=== PATIENT | male | born 1965 | race African-American/Black ===

== ENCOUNTER 2018-07-10 08:24 | Emergency (ER) | payer OTHER ==
[2018-07-10 08:35] VITALS: BP 163/103; PULSE 100; TEMP 98.6; BMI 33.6
[2018-07-10] MEDS ORDERED: CYCLOBENZAPRINE HCL 10 MG TABLET (FP) PO ONE (09:26)
[2018-07-10] MEDS ORDERED: CYCLOBENZAPRINE HCL 10 MG TABLET (FP) ONE (09:29)
--- NOTE | 2018-07-10 09:38 | PDOC ---
History of Present Illness - General Chief Complaint: Back Pain Stated Complaint: LOWER BACK PAIN Time Seen by Provider: 07/10/18 09:03 History Source: Patient Exam Limitations: Clinical Condition - History of Present Illness Initial Comments: 07/10/18 09:33 Patient with history of chronic back pain present with complaining of sudden onset of right-sided lower back pain which is worse with movement and getting up from sitting or laying position. Patient reported pain sometimes radiate to the back of right thigh. Patient reported no pain if he is sitting down stable and pain only comes on with movement. Patient denies any trauma or injury to back. Patient denies any other symptoms. Timing/Duration: other (3 days) Past History - Past Medical History Allergies/Adverse Reactions: Allergies Allergy/AdvReac Type Severity Reaction Status Date / Time aspirin Allergy Verified 07/10/18 08:30 Home Medications: Ambulatory Orders Acetaminophen [Tylenol .Regular Strength -] 325 mg PO PRN 10/25/17 Albuterol 2.5/Ipratropium 0.5 [Duoneb -] 1 amp NEB PRN PRN #7 amp 10/25/17 Prednisone [Deltasone] 40 mg PO DAILY #8 tablet MDD 2 tab 10/25/17 Methocarbamol [Robaxin -] 500 mg PO Q8H PRN #21 tablet 07/10/18 Methylprednisolone [Medrol Dose Robert] 4 mg PO ASDIR #21 tablet 07/10/18 Oxycodone HCl/Acetaminophen [Percocet 5-325 mg Tablet] 1 tab PO Q6H PRN #5 tablet MDD 3 07/10/18 COPD: No HTN: Yes - Immunization History Immunization Up to Date: Yes - Suicide/Smoking/Psychosocial Hx Smoking History: Never smoked Have you smoked in the past 12 months: No Hx Alcohol Use: No Drug/Substance Use Hx: No Substance Use Type: None Review of Systems - Review of Systems Able to Perform ROS?: Yes Is the patient limited Indonesian proficient: No Constitutional: No: Weakness HEENTM: No: Blurred Vision, Double Vision Respiratory: No: Symptoms reported Cardiac (ROS): No: Symptoms Reported ABD/GI: No: Nausea, Vomiting : No: Symptoms Reported, Burning, Discharge, Frequency, Flank Pain, Hematuria , Pain, Urgency, Testicular Mass, Testicular Swelling, Testicular Pain Musculoskeletal: Yes: See HPI, Back Pain (right side), Muscle Pain (right side lower back). No: Muscle Weakness Neurological: No: Numbness, Paresthesia, Tingling, Dizziness All Other Systems: Reviewed and Negative *Physical Exam - Vital Signs Last Vital Signs Temp Pulse Resp BP Pulse Ox 98.6 F 100 H 18 163/103 H 100 07/10/18 08:26 07/10/18 08:26 07/10/18 08:26 07/10/18 08:26 07/10/18 08:26 - Physical Exam Comments: 07/10/18 09:35 GENERAL: Well developed, well nourished. Awake and alert. No acute distress. CARDIOVASCULAR: Regular rate and rhythm. No murmurs, rubs, or gallops. PULMONARY: No evidence of respiratory distress. Lungs clear to auscultation bilaterally. No wheezing, rales or rhonchi. ABDOMINAL: Soft. Non-tender. Non-distended. No rebound or guarding. No organomegaly. Normoactive bowel sounds MUSCULOSKELETAL : Moderate tenderness over right paravertebral muscle of the lower lumbar spine of L2-S1 which is worse with external rotation of hip to the left. Negative straight leg test. No bony deformities . No CVA tenderness EXTREMITIES: No cyanosis. No clubbing. No edema. No calf tenderness. SKIN: Warm and dry. Normal capillary refill. No rashes. No jaundice. NEUROLOGICAL: Alert, awake, appropriate. No motor deficits in the lower extremities. Gait is normal without ataxia. PSYCHIATRIC: Cooperative. Good eye contact. Appropriate mood and affect. General Appearance: Yes: Nourished, Appropriately Dressed, Moderate Distress Moderate Sedation - Procedure Monitoring Vital Signs: Procedure Monitoring Vital Signs Temperature 98.6 F 07/10/18 08:26 Pulse Rate 100 H 07/10/18 08:26 Respiratory Rate 18 07/10/18 08:26 Blood Pressure 163/103 H 07/10/18 08:26 O2 Sat by Pulse Oximetry (%) 100 07/10/18 08:26 ED Treatment Course - Medications Given in the ED: ED Medications Discontinued Medications Generic Name Dose Route Start Last Admin Trade Name Freq PRN Reason Stop Dose Admin Cyclobenzaprine HCl 10 mg 07/10/18 09:26 07/10/18 09:31 Flexeril - PO 07/10/18 09:27 10 mg ONCE ONE Administration Oxycodone/Acetaminophen 1 combo 07/10/18 09:26 07/10/18 09:31 Percocet 5/325 - PO 07/10/18 09:27 1 combo ONCE ONE Administration Medical Decision Making - Medical Decision Making 07/10/18 09:36 Patient presented with complaint of right-sided lower back pain for 3 days which has been worsening and comes on with movement. Exam significant for moderate tenderness to right paravertebral muscle of the lumbar spine. Symptoms likely back spasm. Percocet 1 tab by mouth given for pain given patient with ALLERGY to NSAIDs and Flexeril 10 mg by mouth given for muscle relaxer. Patient is stable for discharge to be taken home by family member with advised to do hot compresses stretching exercise with orthopedics follow-up. *DC/Admit/Observation/Transfer Diagnosis at time of Disposition: Lumbago with sciatica, right side Qualifiers: Chronicity: acute Back pain laterality: right Qualified Code(s): M54.41 - Lumbago with sciatica, right side - Discharge Dispostion Disposition: HOME Condition at time of disposition: Stable Decision to Admit order: No - Prescriptions Prescriptions: Methocarbamol [Robaxin -] 500 mg PO Q8H PRN #21 tablet PRN Reason: Back Pain Methylprednisolone [Medrol Dose Robert] 4 mg PO ASDIR #21 tablet Oxycodone HCl/Acetaminophen [Percocet 5-325 mg Tablet] 1 tab PO Q6H PRN #5 tablet MDD 3 PRN Reason: severe back pain - Referrals Referrals: Edvin Smith DO [Staff Physician] - - Patient Instructions Printed Discharge Instructions: DI for Low Back Pain, Exercise May Reduce Risk of Low Back Pain Additional Instructions: Take medications as prescribed. Apply hot compresses to lower back 2-3 times a day for 5-10 minutes as needed for back pain. Do back stretching exercise as tolerated. Follow-up referred to orthopedics or your own orthopedics which ever has early appointment. - Post Discharge Activity
== END 2018-07-10 11:05 | disposition home or self-care (01) ==
LOC: JERFT 08:24 → JER 08:24 → JERFT 11:05
DX: M54.41 Lumbago with sciatica, right side (principal)
CPT/HCPCS: 99281-25